=== PATIENT | male | born 1935 | race Caucasian/White ===

== ENCOUNTER 2018-02-08 08:15 | Emergency (ER) | payer MEDICARE, BC ==
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
[2018-02-08] MEDS: Diphtheria,Pertussis(Acell),Tetanus Vaccine 0.5 ML SDV IM ONE (08:55)
[2018-02-08] MEDS: Bacitracin/Neomycin/Polymyxin B Oint 0.9 GM U/D Packet TOP ONE (09:21)
== END 2018-02-08 10:00 | disposition home or self-care (01) ==
LOC: LL.ED 08:15
DX: S62.631A Displaced fracture of distal phalanx of left index finger, initial encounter for closed fracture (principal); S61.311A Laceration without foreign body of left index finger with damage to nail, initial encounter; I10 Essential (primary) hypertension; I25.810 Atherosclerosis of coronary artery bypass graft(s) without angina pectoris; M19.90 Unspecified osteoarthritis, unspecified site; Z87.891 Personal history of nicotine dependence; Z79.82 Long term (current) use of aspirin; Z79.899 Other long term (current) drug therapy; Z95.1 Presence of aortocoronary bypass graft; W23.1XXA Caught, crushed, jammed, or pinched between stationary objects, initial encounter; Y92.79 Other farm location as the place of occurrence of the external cause
CPT/HCPCS: 11730; 12001; 73140-FA; 90471; 90715; 99283; 99284

== ENCOUNTER 2021-08-23 11:15 | Inpatient (IN) | payer MEDICARE, BC, OTHER ==
[2021-08-23] MEDS ORDERED: Ondansetron 4 MG Tab.DIS PO ONE (11:17)
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
[2021-08-23] MEDS ORDERED: Lidocaine 2% HCl 11 ML Jelly Filled Syringe ONE (11:54)
[2021-08-23] MEDS ORDERED: Lidocaine 2% HCl 11 ML Jelly Filled Syringe TOP ONE ×2 (11:54→13:30)
[2021-08-23 11:57] LABS: CHLORIDE,CL 99 mmol/L (98-107); SODIUM,NA 135 mmol/L (136-145)
[2021-08-23 11:59] LABS: ANION GAP 16.9 meq/L (7-15)
[2021-08-23] MEDS ORDERED: cefTRIAXone 2 GM Vial IVPUSH SCH (12:30)
[2021-08-23] MEDS ORDERED: Morphine 2 MG/ML SYRINGE IVPUSH ONE (13:08)
[2021-08-23] MEDS: Sodium Chloride 0.9% 10 ML Syringe FLUSH PRN (13:30)
[2021-08-23] MEDS: Sodium Chloride 0.9% 1,000 ML IV SCH ×3 (14:02→22:27)
[2021-08-23] MEDS ORDERED: Acetaminophen 325 MG Tab PO PRN (14:30)
[2021-08-23] MEDS ORDERED: Belladonna Alkaloids/Opium 16.2-60 MG Supp RECTAL PRN (14:30)
[2021-08-23] MEDS ORDERED: Morphine 2 MG/ML SYRINGE IVPUSH PRN (14:30)
[2021-08-23] MEDS ORDERED: Ondansetron 4 MG Tab.DIS PO PRN (14:30)
[2021-08-23] MEDS ORDERED: Ondansetron 4 MG/2 ML SDV IVPUSH PRN (14:30)
[2021-08-23] MEDS ORDERED: Magnesium Citrate Solution 296 ML Bottle PO ONE (14:37)
[2021-08-23] MEDS: Tamsulosin 0.4 MG Cap.ER PO SCH (17:43)
[2021-08-23] MEDS: Gabapentin 300 MG Cap PO SCH ×2 (17:43)
[2021-08-23] MEDS: Sulfamethoxazole/Trimethoprim 800-160 MG Tab PO SCH (17:45)
[2021-08-23] MEDS: Losartan 50 MG Tab PO SCH (19:28)
[2021-08-23] MEDS: Acetaminophen/HYDROcodone 325-5 MG Tab PO PRN (23:04)
[2021-08-24] MEDS: Sodium Chloride 0.9% 1,000 ML IV SCH (04:53)
[2021-08-24 05:13] LABS: ANION GAP 7.2 meq/L (7-15)
[2021-08-24] MEDS: Aspirin 81 MG Tab.Chew PO SCH (08:14)
[2021-08-24] MEDS: Metoprolol Tartrate 25 MG Tab PO SCH (08:14)
[2021-08-24] MEDS: Tamsulosin 0.4 MG Cap.ER PO SCH (08:14)
[2021-08-24] MEDS: Gabapentin 300 MG Cap PO SCH ×2 (08:14→18:08)
[2021-08-24] MEDS: Sulfamethoxazole/Trimethoprim 800-160 MG Tab PO SCH ×2 (08:15→18:08)
[2021-08-24] MEDS: Sodium Chloride 0.9% 10 ML Syringe FLUSH PRN (08:18)
[2021-08-24] MEDS ORDERED: cefTRIAXone 2 GM Vial IVPUSH SCH (08:53)
--- NOTE | 2021-08-24 09:07 | PCM.PN ---
- General Info Date of Service: 08/24/21 Admission Dx/Problem (Free Text): Admission Diagnosis/Problem Admission Diagnosis/Problem 1. urinary retention 2. UTI with fever 3. FRANCISCO Subjective Update: Patient did have a fever last night. 100.8 T max. Treated with tylenol and none since. Has indwelling paz catheter with good drainage but still bloody, less clots. hemoglobin dropped one point, Urine cutlure shows growth. Had Rocephin and started Bactrim DS, awaiting culture. constipation since his hernia surgery treated with magnesium citrate. passing gas today, no bowel movement yet. using his incentive spirometer. did have low oxygen at sleep last night. Denies sleep apnea, does not wear a c pap, states he does snore. Oxygen better while awake. Desires to shower and walk today. Feeling better Functional Status: Reports: Pain Controlled, Tolerating Diet, Ambulating, Incentive Spirometry - Review of Systems General: Reports: Fever HEENT: Reports: No Symptoms Pulmonary: Reports: No Symptoms Cardiovascular: Reports: No Symptoms Gastrointestinal: Reports: Constipation. Denies: Nausea, Vomiting Genitourinary: Reports: Hematuria (wih catheter in place, no new symptoms) Skin: Reports: No Symptoms Neurological: Reports: No Symptoms Psychiatric: Reports: No Symptoms - Patient Data Vitals - Most Recent: Last Vital Signs Temp 35.9 C L 08/24/21 08:00 Pulse 110 H 08/24/21 08:14 Resp 16 08/24/21 08:00 BP 129/98 H 08/24/21 08:14 Pulse Ox 92 L 08/24/21 08:00 on 4 lpm nc at sleep turned down this am Weight - Most Recent: 73.936 kg I&O - Last 24 Hours: Intake & Output 08/23/21 08/24/21 08/24/21 22:59 06:59 14:59 Intake Total 1420 1734 600 Output Total 2050 825 Balance -630 909 600 Lab Results Last 24 Hours: Laboratory Results - last 24 hr 08/23/21 08/23/21 08/23/21 Range/Units 11:31 11:31 11:31 WBC 12.3 H (4.0-10.2) K/uL RBC 3.85 L (4.33-5.41) M/uL Hgb 12.0 L (13.1-16.8) g/dL Hct 36.8 L (39.0-49.0) % MCV 95.6 (84.0-98.0) fL MCH 31.2 (28.2-33.3) pg MCHC 32.6 (31.7-36.0) g/dL RDW 13.5 (11.2-14.1) % Plt Count 164 D (150-350) K/uL Neut % (Auto) 80.6 H (45.0-80.0) % Lymph % (Auto) 6.9 L (10.0-50.0) % [place] % (Auto) 12.4 (2.0-14.0) % Eos % (Auto) 0.0 (0.0-5.0) % Baso % (Auto) 0.1 (0.0-2.0) % Neut # (Auto) 9.89 H (1.40-7.00) K/uL Lymph # (Auto) 0.85 (0.50-3.50) K/uL [place] # (Auto) 1.52 H (0.00-1.00) K/uL Eos # (Auto) 0.00 (0.00-0.50) K/uL Baso # (Auto) 0.01 (0.00-0.20) K/uL Sodium 135 L (136-145) mmol/L Potassium 4.3 (3.5-5.1) mmol/L Chloride 99 (98-107) mmol/L Carbon Dioxide 23.4 (21.0-32.0) mmol/L Anion Gap 16.9 H (7-15) meq/L BUN 25 H (7-18) mg/dL Creatinine 1.93 H (0.51-1.17) mg/dL Est Cr Clr Drug Dosing TNP Estimated GFR (MDRD) 33 mL/min Glucose 121 H (70-99) mg/dL Lactic Acid 1.2 (0.4-2.0) mmol/L Calcium 8.4 L (8.5-10.1) mg/dL Total Bilirubin 0.9 (0.2-1.0) mg/dL AST 21 (15-37) U/L ALT 22 (12-78) U/L Alkaline Phosphatase 72 (46-116) IU/L C-Reactive Protein 3.9 H (<=0.9) mg/dL Total Protein 6.8 (6.4-8.2) g/dL Albumin 3.4 (3.4-5.0) g/dL Specimen Type Urine Color Urine Appearance Urine pH (5.0-9.0) Ur Specific [place] (1.005-1.030) Urine Protein (NEGATIVE) mg/dL Urine Glucose (UA) (NEGATIVE) mg/dL Urine Ketones (NEGATIVE) mg/dL Urine Occult Blood (NEGATIVE) Urine Nitrite (NEGATIVE) Urine Bilirubin (NEGATIVE) Urine Urobilinogen (0.2-1.0) E.U./dL Ur Leukocyte Esterase (NEGATIVE) Urine RBC /HPF Urine WBC /HPF Urine Bacteria (NONE TO FEW) /HPF 08/23/21 08/24/21 08/24/21 Range/Units 15:55 04:52 04:52 WBC 9.8 (4.0-10.2) K/uL RBC 3.51 L (4.33-5.41) M/uL Hgb 11.0 L (13.1-16.8) g/dL Hct 34.2 L (39.0-49.0) % MCV 97.4 (84.0-98.0) fL MCH 31.3 (28.2-33.3) pg MCHC 32.2 (31.7-36.0) g/dL RDW 13.6 (11.2-14.1) % Plt Count 124 L (150-350) K/uL Neut % (Auto) 81.7 H (45.0-80.0) % Lymph % (Auto) 9.4 L (10.0-50.0) % [place] % (Auto) 8.1 (2.0-14.0) % Eos % (Auto) 0.7 (0.0-5.0) % Baso % (Auto) 0.1 (0.0-2.0) % Neut # (Auto) 7.97 H (1.40-7.00) K/uL Lymph # (Auto) 0.92 (0.50-3.50) K/uL [place] # (Auto) 0.79 (0.00-1.00) K/uL Eos # (Auto) 0.07 (0.00-0.50) K/uL Baso # (Auto) 0.01 (0.00-0.20) K/uL Sodium 140 (136-145) mmol/L Potassium 4.6 (3.5-5.1) mmol/L Chloride 105 (98-107) mmol/L Carbon Dioxide 27.8 (21.0-32.0) mmol/L Anion Gap 7.2 (7-15) meq/L BUN 23 H (7-18) mg/dL Creatinine 1.43 H (0.51-1.17) mg/dL Est Cr Clr Drug Dosing 35.32 Estimated GFR (MDRD) 47 mL/min Glucose 109 H (70-99) mg/dL Lactic Acid (0.4-2.0) mmol/L Calcium 8.1 L (8.5-10.1) mg/dL Total Bilirubin (0.2-1.0) mg/dL AST (15-37) U/L ALT (12-78) U/L Alkaline Phosphatase (46-116) IU/L C-Reactive Protein (<=0.9) mg/dL Total Protein (6.4-8.2) g/dL Albumin (3.4-5.0) g/dL Specimen Type Urincath Urine Color Red Urine Appearance Turbid Urine pH 8.5 (5.0-9.0) Ur Specific [place] <= 1.005 (1.005-1.030) Urine Protein >=300 H (NEGATIVE) mg/dL Urine Glucose (UA) 100 H (NEGATIVE) mg/dL Urine Ketones 15 H (NEGATIVE) mg/dL Urine Occult Blood Large H (NEGATIVE) Urine Nitrite Negative (NEGATIVE) Urine Bilirubin Large H (NEGATIVE) Urine Urobilinogen 4.0 H (0.2-1.0) E.U./dL Ur Leukocyte Esterase Large H (NEGATIVE) Urine RBC >100 H /HPF Urine WBC >100 H /HPF Urine Bacteria Occasional (NONE TO FEW) /HPF Mark Results Last 24 Hours: Microbiology 08/23/21 15:55 Urine Culture - Preliminary Urine, Paz Cath ([place]) Gram Negative Rods Med Orders - Current: Current Medications Acetaminophen (Acetaminophen 325 Mg Tab) 650 mg PO Q4H PRN PRN Reason: Pain (Mild 1-3)/fever Last Admin: 08/24/21 08:15 Dose: 650 mg Documented by: Hydrocodone Bitart/Acetaminophen (Acetaminophen/Hydrocodone 325-5 Mg Tab) 1 tab PO Q4H PRN PRN Reason: Pain (moderate 4-6) Last Admin: 08/23/21 23:04 Dose: 1 tab Documented by: Aspirin (Aspirin 81 Mg Tab.Chew) 81 mg PO DAILY [facility] Last Admin: 08/24/21 08:14 Dose: 81 mg Documented by: Belladonna Alkaloids/Opium (Belladonna Alkaloids/Opium 16.2-60 Mg Supp) 1 supp RECTAL Q4H PRN PRN Reason: Spasms Ceftriaxone Sodium (Ceftriaxone 1 Gm Vial) 1 gm IVPUSH Q24H [facility] Ciprofloxacin (Ciprofloxacin 500 Mg Tab) 500 mg PO BID [facility] Gabapentin (Gabapentin 300 Mg Cap) 300 mg PO BID [facility] Last Admin: 08/24/21 08:14 Dose: 300 mg Documented by: Sodium Chloride (Normal Saline) 1,000 mls @ 999 mls/hr IV ASDIRECTED [facility] Last Admin: 08/23/21 22:27 Dose: 150 mls/hr Documented by: Sodium Chloride (Normal Saline) 1,000 mls @ 150 mls/hr IV ASDIRECTED [facility] Stop: 08/24/21 21:09 Last Infusion: 08/23/21 22:15 Dose: Infused Documented by: Lactobacillus Rhamnosus (Lactobacillus Rhamnosus Gg (Probiotic) Cap) 1 cap PO BID [facility] Losartan Potassium (Losartan 50 Mg Tab) 100 mg PO BEDTIME [facility] Last Admin: 08/23/21 19:28 Dose: 100 mg Documented by: Metoprolol Tartrate (Metoprolol Tartrate 25 Mg Tab) 25 mg PO DAILY [facility] Last Admin: 08/24/21 08:14 Dose: 25 mg Documented by: Morphine Sulfate (Morphine 2 Mg/Ml Syringe) 2 mg IVPUSH Q2H PRN PRN Reason: Pain (severe 7-10) Non-Formulary Medication (Non-Formulary Medication [Nf Drug]) 1 each PO DAILY [facility] Ondansetron HCl (Ondansetron 4 Mg Tab.Dis) 4 mg PO Q4H PRN PRN Reason: Nausea/Vomiting Ondansetron HCl (Ondansetron 4 Mg/2 Ml Sdv) 4 mg IVPUSH Q4H PRN PRN Reason: Nausea/Vomiting Sodium Chloride (Sodium Chloride 0.9% 10 Ml Syringe) 10 ml FLUSH ASDIRECTED PRN PRN Reason: Keep Vein Open Last Admin: 08/24/21 08:18 Dose: 10 ml Documented by: Tamsulosin HCl (Tamsulosin 0.4 Mg Cap.Er) 0.4 mg PO DAILY [facility] Last Admin: 08/24/21 08:14 Dose: 0.4 mg Documented by: Trimethoprim/Sulfamethoxazole (Sulfamethoxazole/Trimethoprim 800-160 Mg Tab) 1 tab PO BID [facility] Last Admin: 08/24/21 08:15 Dose: 1 tab Documented by: Discontinued Medications Ceftriaxone Sodium (Ceftriaxone 2 Gm Vial) 2 gm IVPUSH Q24H [facility] Last Admin: 08/23/21 13:29 Dose: 2 gm Documented by: Ceftriaxone Sodium (Ceftriaxone 2 Gm Vial) 1 gm IVPUSH Q24H [facility] Lidocaine HCl (Lidocaine 2% Hcl 11 Ml Jelly Filled Syringe) Confirm Administered Dose 11 ml .ROUTE .STK-MED ONE Stop: 08/23/21 11:55 Last Admin: 08/23/21 14:13 Dose: Not Given Documented by: Lidocaine HCl (Lidocaine 2% Hcl 11 Ml Jelly Filled Syringe) 11 ml TOP ONETIME ONE Stop: 08/23/21 13:31 Last Admin: 08/23/21 13:30 Dose: 11 ml Documented by: Lidocaine HCl (Lidocaine 2% Hcl 11 Ml Jelly Filled Syringe) 11 ml TOP ONETIME ONE Stop: 08/23/21 11:55 Last Admin: 08/23/21 11:54 Dose: 11 ml Documented by: Magnesium Citrate (Magnesium Citrate Solution 296 Ml Bottle) 0 ml PO ONETIME ONE Stop: 08/23/21 14:38 Last Admin: 08/23/21 15:38 Dose: 296 ml Documented by: Morphine Sulfate (Morphine 2 Mg/Ml Syringe) 2 mg IVPUSH ONETIME ONE Stop: 08/23/21 13:09 Last Admin: 08/23/21 13:26 Dose: 2 mg Documented by: Ondansetron HCl (Ondansetron 4 Mg Tab.Dis) 4 mg PO ONETIME ONE Stop: 08/23/21 11:18 Last Admin: 08/23/21 11:26 Dose: 4 mg Documented by: - Exam Quality Assessment: Supplemental Oxygen (at night, query sleep apnea versus atelectasis) Urinary Catheter Total Time: 0Days 9Hours General: Alert, Oriented, No Acute Distress HEENT: Pupils Equal, Pupils Reactive Neck: Supple Lungs: Clear to Auscultation, Normal Respiratory Effort Cardiovascular: Regular Rate, Regular Rhythm GI/Abdominal Exam: Normal Bowel Sounds, Soft, Non-Tender, No Organomegaly, No Distention (Male) Exam: Other (paz catheter in place, less bloody mucousy discharge from urethra) Extremities: Normal Inspection, Normal Range of Motion, Non-Tender, No Pedal Edema Wound/Incisions: Other (dressing is unchange, dried blood, no fluctuance, echymosis improving. ) Neurological: No New Focal Deficit Psy/Mental Status: Alert - Patient Data Lab Results Last 24 hrs: Laboratory Results - last 24 hr 08/23/21 08/23/21 08/23/21 Range/Units 11:31 11:31 11:31 WBC 12.3 H (4.0-10.2) K/uL RBC 3.85 L (4.33-5.41) M/uL Hgb 12.0 L (13.1-16.8) g/dL Hct 36.8 L (39.0-49.0) % MCV 95.6 (84.0-98.0) fL MCH 31.2 (28.2-33.3) pg MCHC 32.6 (31.7-36.0) g/dL RDW 13.5 (11.2-14.1) % Plt Count 164 D (150-350) K/uL Neut % (Auto) 80.6 H (45.0-80.0) % Lymph % (Auto) 6.9 L (10.0-50.0) % [place] % (Auto) 12.4 (2.0-14.0) % Eos % (Auto) 0.0 (0.0-5.0) % Baso % (Auto) 0.1 (0.0-2.0) % Neut # (Auto) 9.89 H (1.40-7.00) K/uL Lymph # (Auto) 0.85 (0.50-3.50) K/uL [place] # (Auto) 1.52 H (0.00-1.00) K/uL Eos # (Auto) 0.00 (0.00-0.50) K/uL Baso # (Auto) 0.01 (0.00-0.20) K/uL Sodium 135 L (136-145) mmol/L Potassium 4.3 (3.5-5.1) mmol/L Chloride 99 (98-107) mmol/L Carbon Dioxide 23.4 (21.0-32.0) mmol/L Anion Gap 16.9 H (7-15) meq/L BUN 25 H (7-18) mg/dL Creatinine 1.93 H (0.51-1.17) mg/dL Est Cr Clr Drug Dosing TNP Estimated GFR (MDRD) 33 mL/min Glucose 121 H (70-99) mg/dL Lactic Acid 1.2 (0.4-2.0) mmol/L Calcium 8.4 L (8.5-10.1) mg/dL Total Bilirubin 0.9 (0.2-1.0) mg/dL AST 21 (15-37) U/L ALT 22 (12-78) U/L Alkaline Phosphatase 72 (46-116) IU/L C-Reactive Protein 3.9 H (<=0.9) mg/dL Total Protein 6.8 (6.4-8.2) g/dL Albumin 3.4 (3.4-5.0) g/dL Specimen Type Urine Color Urine Appearance Urine pH (5.0-9.0) Ur Specific [place] (1.005-1.030) Urine Protein (NEGATIVE) mg/dL Urine Glucose (UA) (NEGATIVE) mg/dL Urine Ketones (NEGATIVE) mg/dL Urine Occult Blood (NEGATIVE) Urine Nitrite (NEGATIVE) Urine Bilirubin (NEGATIVE) Urine Urobilinogen (0.2-1.0) E.U./dL Ur Leukocyte Esterase (NEGATIVE) Urine RBC /HPF Urine WBC /HPF Urine Bacteria (NONE TO FEW) /HPF 08/23/21 08/24/21 08/24/21 Range/Units 15:55 04:52 04:52 WBC 9.8 (4.0-10.2) K/uL RBC 3.51 L (4.33-5.41) M/uL Hgb 11.0 L (13.1-16.8) g/dL Hct 34.2 L (39.0-49.0) % MCV 97.4 (84.0-98.0) fL MCH 31.3 (28.2-33.3) pg MCHC 32.2 (31.7-36.0) g/dL RDW 13.6 (11.2-14.1) % Plt Count 124 L (150-350) K/uL Neut % (Auto) 81.7 H (45.0-80.0) % Lymph % (Auto) 9.4 L (10.0-50.0) % [place] % (Auto) 8.1 (2.0-14.0) % Eos % (Auto) 0.7 (0.0-5.0) % Baso % (Auto) 0.1 (0.0-2.0) % Neut # (Auto) 7.97 H (1.40-7.00) K/uL Lymph # (Auto) 0.92 (0.50-3.50) K/uL [place] # (Auto) 0.79 (0.00-1.00) K/uL Eos # (Auto) 0.07 (0.00-0.50) K/uL Baso # (Auto) 0.01 (0.00-0.20) K/uL Sodium 140 (136-145) mmol/L Potassium 4.6 (3.5-5.1) mmol/L Chloride 105 (98-107) mmol/L Carbon Dioxide 27.8 (21.0-32.0) mmol/L Anion Gap 7.2 (7-15) meq/L BUN 23 H (7-18) mg/dL Creatinine 1.43 H (0.51-1.17) mg/dL Est Cr Clr Drug Dosing 35.32 Estimated GFR (MDRD) 47 mL/min Glucose 109 H (70-99) mg/dL Lactic Acid (0.4-2.0) mmol/L Calcium 8.1 L (8.5-10.1) mg/dL Total Bilirubin (0.2-1.0) mg/dL AST (15-37) U/L ALT (12-78) U/L Alkaline Phosphatase (46-116) IU/L C-Reactive Protein (<=0.9) mg/dL Total Protein (6.4-8.2) g/dL Albumin (3.4-5.0) g/dL Specimen Type Urincath Urine Color Red Urine Appearance Turbid Urine pH 8.5 (5.0-9.0) Ur Specific [place] <= 1.005 (1.005-1.030) Urine Protein >=300 H (NEGATIVE) mg/dL Urine Glucose (UA) 100 H (NEGATIVE) mg/dL Urine Ketones 15 H (NEGATIVE) mg/dL Urine Occult Blood Large H (NEGATIVE) Urine Nitrite Negative (NEGATIVE) Urine Bilirubin Large H (NEGATIVE) Urine Urobilinogen 4.0 H (0.2-1.0) E.U./dL Ur Leukocyte Esterase Large H (NEGATIVE) Urine RBC >100 H /HPF Urine WBC >100 H /HPF Urine Bacteria Occasional (NONE TO FEW) /HPF Result Diagrams: 08/24/21 04:52 08/24/21 04:52 Mark Results Last 24 hrs: Microbiology 08/23/21 15:55 Urine Culture - Preliminary Urine, Paz Cath ([place]) Gram Negative Rods Sepsis Event Note - Evaluation Sepsis Screening Result: No Definite Risk - Focused Exam Vital Signs: Vital Signs Temp Pulse Pulse Resp BP BP BP 08/24/21 08:14 110 H 129/98 H 08/24/21 08:00 35.9 C L 110 H 16 124/98 H 08/24/21 06:14 08/24/21 04:45 08/24/21 04:40 36.8 C 81 18 134/57 L 08/23/21 23:29 37.9 C 84 18 131/58 L 08/23/21 22:29 38.3 C H Pulse Ox 08/24/21 08:14 08/24/21 08:00 92 L 08/24/21 06:14 92 L 08/24/21 04:45 92 L 08/24/21 04:40 82 L 08/23/21 23:29 92 L 08/23/21 22:29 - Problem List & Annotations (1) FRANCISCO (acute kidney injury) SNOMED Code(s): 82477258, 29795109 Code(s): N17.9 - ACUTE KIDNEY FAILURE, UNSPECIFIED Status: Acute Current Visit: Yes Onset Date: ~08/23/21 Annotation/Comment:: Improved, had IV fluids tolerating PO fluids. Normalized and catheter in place for drainage. (2) Prostatitis SNOMED Code(s): 5821990 Code(s): N41.9 - INFLAMMATORY DISEASE OF PROSTATE, UNSPECIFIED Status: Acute Priority: Medium Current Visit: Yes Onset Date: ~08/23/21 Annotation/Comment:: difficult paz catheter insertion due to previous insertion. Now in place, draining with hematuria but less clots. will continue catheter draiange, irrigate today to ensure draining well. Gram negative rods growing in urine culture, one more dose of Rocephin IV, on bactrim. Will add cipro for the prostatitis and probiotic. Await culture. Was febrile. Needs to be afebrile today. white count normalized (3) Retention of urine SNOMED Code(s): 826851622 Code(s): R33.9 - RETENTION OF URINE, UNSPECIFIED Status: Resolved Priority: Medium Current Visit: Yes Onset Date: ~08/23/21 Annotation/Comment:: See prostatitis annotation. Improved. will need carlo nuation of the paz catheter for 5-7 days and antibiotics - Problem List Review Problem List Initiated/Reviewed/Updated: Yes - My Orders Last 24 Hours: My Active Orders 08/23/21 11:17 Bladder Scan [RC] ASDIRECTED 08/23/21 11:18 Urinary Catheter Assessment [RC] 08,08/23/21 11:30 Insert Paz Catheter [Insert Urinary Catheter] [OM.PC] Q24H 08/23/21 12:16 Abdomen Pelvis wo Cont [CT] Stat 08/23/21 12:18 Sodium Chloride 0.9% [Saline Flush] 10 ml FLUSH ASDIRECTED PRN Peripheral IV Insertion Adult [OM.PC] Routine 08/23/21 12:30 Sodium Chloride 0.9% [Normal Saline] 1,000 ml IV ASDIRECTED 08/23/21 13:49 Admission Status [Patient Status] [ADT] Routine 08/23/21 14:30 Up With Assistance [RC] .PRN Vital Signs [RC] 08,15,23 Acetaminophen [TylenoL] 650 mg PO Q4H PRN Acetaminophen/HYDROcodone [[place] 325-5 MG] 1 tab PO Q4H PRN Belladonna/Opium [B & O Supprettes No. 16A] 1 supp RECTAL Q4H PRN Morphine 2 mg IVPUSH Q2H PRN Ondansetron [Zofran ODT] 4 mg PO Q4H PRN Ondansetron [Zofran] 4 mg IVPUSH Q4H PRN Sodium Chloride 0.9% [Normal Saline] 1,000 ml IV ASDIRECTED Resuscitation Status Routine 08/23/21 14:31 Oxygen Therapy [RC] .PRN VTE/DVT Education [RC] 08/23/21 14:33 Intake and Output [RC] 06,18 08/23/21 15:45 Gabapentin [Neurontin] 300 mg PO BID Tamsulosin [Flomax] 0.4 mg PO DAILY 08/23/21 15:55 CULTURE URINE [RM] Stat 08/23/21 Dinner Regular Diet [DIET] 08/23/21 18:00 Sulfamethoxazole/Trimethoprim [Septra DS] 1 tab PO BID 08/23/21 19:35 Renew/Continue Urinary Catheter [OM.PC] Routine 08/23/21 20:00 Losartan [Cozaar] 100 mg PO BEDTIME 08/24/21 08:00 Aspirin 81 mg PO DAILY Metoprolol Tartrate [Lopressor] 25 mg PO DAILY Non-Formulary Medication [NF Drug] 1 each PO DAILY 08/24/21 08:45 Ciprofloxacin [Ciprofloxacin HCl] 500 mg PO BID 08/24/21 09:00 Lactobacillus Rhamnosus GG [Culturelle] 1 cap PO BID 08/24/21 12:30 cefTRIAXone [Rocephin] 1 gm IVPUSH Q24H - Assessment Assessment:: Urinary retention and uti with prostatitis from paz catheter insertion and removal in 24 hours. improving with antibitoics, indwelling paz catheter. Post op inguinal hernia with constipation. Given magnesium citrate, shower today and remove dressing, local wound cares and ambulation. FRANCISCO improved with IV fluids and removal of bladder outlet obstruction fever due to UTI and prostatitis - Plan Plan:: Continue IV antibitoics x 1, continue oral bactrim and cipro with probiotics until culture returns with concern for resistance. encrouage Po intake, ambulation, incentive spirometry. Will continue to monitor O2 sats, concern for atelectasis post op. maximize incentive spirometry. Offer suppository for constipation. declines. prefers to walk and is passing gas. Will monitor. Needs to get bowels working to help the bladder. Will need to be afebrile for 24 hours prior to discharge and concern for hematuria and clotting of catheter at home.
[2021-08-24] MEDS: cefTRIAXone 1 GM Vial IVPUSH SCH (12:22)
[2021-08-24] MEDS: Lactobacillus Rhamnosus GG (Probiotic) Cap PO SCH ×2 (12:22→18:08)
[2021-08-24] MEDS: Ciprofloxacin 500 MG Tab PO SCH ×2 (12:22→18:08)
[2021-08-24] MEDS ORDERED: Iopamidol 755 Mg/ML 100 ML Bottle IVPUSH STA (17:17)
--- NOTE | 2021-08-24 19:01 | PCM.SN.2 ---
- Free Text/Narrative Note: Patient has been up and walking the halls today, noted to continue to be hypoxic since last night. left on 2 lpm NC. minimal cough. showered and did well. Hitting 1500 on the incentive spirometer every hour. Getting Rocephin, bactrim and cipro. Awaiting urine culture. No bowel movement but passing gas. willing to try miralax in the morning, does not want a suppository. CT PE study was done due to hypoxia and recent surgery. Has right upper lobe pneumonia which could be aspiration from procedure. covered with Rocephin and cipro for this already. Maximize spirometer. multiple segmental and subsegmental pulmonary emboli. Will start lovenox at 80 mg subcutaneous bid and continue through hospitalization, may need home oxygen. admission status changed to inpatient \ Ct report with multiple pulmonary emboli involving multiple segmental and subsegmental pulmonary arteries in the lungs. Most in the right lower lobe. No right heart strain. consolidation in the posterior right upper lobe suggest pneumonitis/pneumonia trace bilatera pleural effusions, consolidations in bilateral lower lobes likely atelectasis
[2021-08-24] MEDS: Losartan 50 MG Tab PO SCH (19:19)
[2021-08-24] MEDS: Enoxaparin 80 MG/0.8 ML Syringe SUBCUT SCH (19:59)
[2021-08-25] MEDS ORDERED: Polyethylene Glycol 3350 Powder 17 GM Packet PO ONE (07:00)
[2021-08-25] MEDS ORDERED: Albuterol 0.083% 2.5 MG/3 ML Neb Soln NEB PRN (08:05)
--- NOTE | 2021-08-25 08:22 | PCM.PN ---
- General Info Date of Service: 08/25/21 Admission Dx/Problem (Free Text): Admission Diagnosis/Problem Admission Diagnosis/Problem PE, Pulmonary embolism with hypoxia urinary retention with UTI pneumonia Subjective Update: Patient was admitted with urinary retention and hematuria after inguinal hernia surgery. he had a fever and so was kept overnight for monitoring of blood clots obstructing his paz and the fever. Had been started on Rocephin and bactrim due to difficult paz catheter placement and marked inflammed prostate on CT. Urine is growing gram negative rods. No further fevers but did develop hypoxia overnight that continued into yesterday. Patient was up and ambulating with good paz drainage with dark blood and no clots in it. Elected to get a CT PE protocol for the hypoxia due to recent surgery. CT revealed a right upper lobe pneumonia due to probable aspiration with surgery, multiple pulmonary emboli. Patient is now on oxygen and getting lovenox 80 mg subcutaneous bid, covered wtih rocephin IV, cipro 500 mg bid and bactrim ds bid. awaiting urine culture sensitivities to de-escalate antibiotics Functional Status: Reports: Pain Controlled, Tolerating Diet, Ambulating, Incentive Spirometry, Other (on 2 lmp o2 wtih activity and rest) - Review of Systems General: Reports: No Symptoms HEENT: Reports: No Symptoms Pulmonary: Reports: Shortness of Breath, Cough (minimal) Cardiovascular: Reports: No Symptoms. Denies: Chest Pain, Palpitations Gastrointestinal: Reports: No Symptoms, Other (did have a small bowel movement today) Genitourinary: Reports: Other (paz catheter in, draining well, some bladder spasms that are tolerable) Skin: Reports: Other (surgical wound witout erythema or dehiscence, bruising improving) Neurological: Reports: No Symptoms Psychiatric: Reports: No Symptoms - Patient Data Vitals - Most Recent: Last Vital Signs Temp 37.7 C 08/24/21 23:20 Pulse 69 08/24/21 23:20 Resp 18 08/24/21 23:20 BP 110/50 L 08/24/21 23:20 Pulse Ox 92 L 08/25/21 03:20 Weight - Most Recent: 73.936 kg I&O - Last 24 Hours: Intake & Output 08/24/21 08/25/21 08/25/21 22:59 06:59 14:59 Intake Total 240 420 Output Total 475 775 Balance -235 -355 Lab Results Last 24 Hours: Laboratory Results - last 24 hr 08/24/21 08/25/21 Range/Units 19:02 07:44 WBC 11.7 H (4.0-10.2) K/uL RBC 3.17 L (4.33-5.41) M/uL Hgb 10.0 L 9.9 L (13.1-16.8) g/dL Hct 31.3 L 30.9 L (39.0-49.0) % MCV 97.5 (84.0-98.0) fL MCH 31.2 (28.2-33.3) pg MCHC 32.0 (31.7-36.0) g/dL RDW 13.6 (11.2-14.1) % Plt Count 124 L (150-350) K/uL Neut % (Auto) 78.4 (45.0-80.0) % Lymph % (Auto) 8.5 L (10.0-50.0) % Fountain % (Auto) 8.9 (2.0-14.0) % Eos % (Auto) 4.0 (0.0-5.0) % Baso % (Auto) 0.2 (0.0-2.0) % Neut # (Auto) 9.21 H (1.40-7.00) K/uL Lymph # (Auto) 1.00 (0.50-3.50) K/uL Fountain # (Auto) 1.04 H (0.00-1.00) K/uL Eos # (Auto) 0.47 (0.00-0.50) K/uL Baso # (Auto) 0.02 (0.00-0.20) K/uL Mark Results Last 24 Hours: Microbiology 08/23/21 15:55 Urine Culture - Preliminary Urine, Paz Cath (Indwelling) Gram Negative Rods Med Orders - Current: Current Medications Acetaminophen (Acetaminophen 325 Mg Tab) 650 mg PO Q4H PRN PRN Reason: Pain (Mild 1-3)/fever Last Admin: 08/24/21 08:15 Dose: 650 mg Documented by: Hydrocodone Bitart/Acetaminophen (Acetaminophen/Hydrocodone 325-5 Mg Tab) 1 tab PO Q4H PRN PRN Reason: Pain (moderate 4-6) Last Admin: 08/23/21 23:04 Dose: 1 tab Documented by: Albuterol (Albuterol 0.083% 2.5 Mg/3 Ml Neb Soln) 2.5 mg NEB Q4HRRT PRN PRN Reason: Shortness of Breath Aspirin (Aspirin 81 Mg Tab.Chew) 81 mg PO DAILY [facility] Last Admin: 08/24/21 08:14 Dose: 81 mg Documented by: Belladonna Alkaloids/Opium (Belladonna Alkaloids/Opium 16.2-60 Mg Supp) 1 supp RECTAL Q4H PRN PRN Reason: Spasms Ceftriaxone Sodium (Ceftriaxone 1 Gm Vial) 1 gm IVPUSH Q24H [facility] Last Admin: 08/24/21 12:22 Dose: 1 gm Documented by: Ciprofloxacin (Ciprofloxacin 500 Mg Tab) 500 mg PO BID [facility] Last Admin: 08/24/21 18:08 Dose: 500 mg Documented by: Enoxaparin Sodium (Enoxaparin 80 Mg/0.8 Ml Syringe) 80 mg SUBCUT Q12HR [facility] Last Admin: 08/24/21 19:59 Dose: 80 mg Documented by: Gabapentin (Gabapentin 300 Mg Cap) 300 mg PO BID [facility] Last Admin: 08/24/21 18:08 Dose: 300 mg Documented by: Sodium Chloride (Normal Saline) 1,000 mls @ 999 mls/hr IV ASDIRECTED [facility] Last Admin: 08/23/21 22:27 Dose: 150 mls/hr Documented by: Influenza Virus Vaccine (Pharmacy To Dose - Influenza Vaccine) 1 each IM ASDIRECTED [facility] Lactobacillus Rhamnosus (Lactobacillus Rhamnosus Gg (Probiotic) Cap) 1 cap PO BID [facility] Last Admin: 08/24/21 18:08 Dose: 1 cap Documented by: Losartan Potassium (Losartan 50 Mg Tab) 100 mg PO BEDTIME [facility] Last Admin: 08/24/21 19:19 Dose: 100 mg Documented by: Metoprolol Tartrate (Metoprolol Tartrate 25 Mg Tab) 25 mg PO DAILY [facility] Last Admin: 08/24/21 08:14 Dose: 25 mg Documented by: Morphine Sulfate (Morphine 2 Mg/Ml Syringe) 2 mg IVPUSH Q2H PRN PRN Reason: Pain (severe 7-10) Non-Formulary Medication (Non-Formulary Medication [Nf Drug]) 1 each PO DAILY [facility] Ondansetron HCl (Ondansetron 4 Mg Tab.Dis) 4 mg PO Q4H PRN PRN Reason: Nausea/Vomiting Ondansetron HCl (Ondansetron 4 Mg/2 Ml Sdv) 4 mg IVPUSH Q4H PRN PRN Reason: Nausea/Vomiting Sodium Chloride (Sodium Chloride 0.9% 10 Ml Syringe) 10 ml FLUSH ASDIRECTED PRN PRN Reason: Keep Vein Open Last Admin: 08/24/21 08:18 Dose: 10 ml Documented by: Tamsulosin HCl (Tamsulosin 0.4 Mg Cap.Er) 0.4 mg PO DAILY [facility] Last Admin: 08/24/21 08:14 Dose: 0.4 mg Documented by: Trimethoprim/Sulfamethoxazole (Sulfamethoxazole/Trimethoprim 800-160 Mg Tab) 1 tab PO BID [facility] Last Admin: 08/24/21 18:08 Dose: 1 tab Documented by: Discontinued Medications Ceftriaxone Sodium (Ceftriaxone 2 Gm Vial) 2 gm IVPUSH Q24H [facility] Last Admin: 08/23/21 13:29 Dose: 2 gm Documented by: Ceftriaxone Sodium (Ceftriaxone 2 Gm Vial) 1 gm IVPUSH Q24H [facility] Last Admin: 08/24/21 15:10 Dose: Not Given Documented by: Sodium Chloride (Normal Saline) 1,000 mls @ 150 mls/hr IV ASDIRECTED [facility]GO Stop: 08/24/21 21:09 Last Infusion: 08/23/21 22:15 Dose: Infused Documented by: Iopamidol (Iopamidol 755 Mg/Ml 100 Ml Bottle) 100 ml IVPUSH ONETIME STA Stop: 08/24/21 17:18 Last Admin: 08/24/21 17:56 Dose: 100 ml Documented by: Lidocaine HCl (Lidocaine 2% Hcl 11 Ml Jelly Filled Syringe) Confirm Administered Dose 11 ml .ROUTE .STK-MED ONE Stop: 08/23/21 11:55 Last Admin: 08/23/21 14:13 Dose: Not Given Documented by: Lidocaine HCl (Lidocaine 2% Hcl 11 Ml Jelly Filled Syringe) 11 ml TOP ONETIME O NE Stop: 08/23/21 13:31 Last Admin: 08/23/21 13:30 Dose: 11 ml Documented by: Lidocaine HCl (Lidocaine 2% Hcl 11 Ml Jelly Filled Syringe) 11 ml TOP ONETIME ONE Stop: 08/23/21 11:55 Last Admin: 08/23/21 11:54 Dose: 11 ml Documented by: Magnesium Citrate (Magnesium Citrate Solution 296 Ml Bottle) 0 ml PO ONETIME ONE Stop: 08/23/21 14:38 Last Admin: 08/23/21 15:38 Dose: 296 ml Documented by: Morphine Sulfate (Morphine 2 Mg/Ml Syringe) 2 mg IVPUSH ONETIME ONE Stop: 08/23/21 13:09 Last Admin: 08/23/21 13:26 Dose: 2 mg Documented by: Ondansetron HCl (Ondansetron 4 Mg Tab.Dis) 4 mg PO ONETIME ONE Stop: 08/23/21 11:18 Last Admin: 08/23/21 11:26 Dose: 4 mg Documented by: Polyethylene Glycol (Polyethylene Glycol 3350 Powder 17 Gm Packet) 17 gm PO ONETIME ONE Stop: 08/25/21 07:01 - Exam Quality Assessment: Supplemental Oxygen, Urine Catheter Urinary Catheter Total Time: 1Days 9Hours General: Alert, Oriented HEENT: Pupils Equal Neck: Supple Lungs: Normal Respiratory Effort, Decreased Breath Sounds (minimal at bases) Cardiovascular: Regular Rate, Regular Rhythm, No Murmurs GI/Abdominal Exam: Normal Bowel Sounds, Soft, Non-Tender (Male) Exam: Other (left inguinal incision without erythema, dehiscence, bruising improving) Extremities: Normal Inspection, Normal Range of Motion, Non-Tender, No Pedal Edema Wound/Incisions: Healing Well Psy/Mental Status: Alert - Patient Data Lab Results Last 24 hrs: Laboratory Results - last 24 hr 08/24/21 08/25/21 Range/Units 19:02 07:44 WBC 11.7 H (4.0-10.2) K/uL RBC 3.17 L (4.33-5.41) M/uL Hgb 10.0 L 9.9 L (13.1-16.8) g/dL Hct 31.3 L 30.9 L (39.0-49.0) % MCV 97.5 (84.0-98.0) fL MCH 31.2 (28.2-33.3) pg MCHC 32.0 (31.7-36.0) g/dL RDW 13.6 (11.2-14.1) % Plt Count 124 L (150-350) K/uL Neut % (Auto) 78.4 (45.0-80.0) % Lymph % (Auto) 8.5 L (10.0-50.0) % Fountain % (Auto) 8.9 (2.0-14.0) % Eos % (Auto) 4.0 (0.0-5.0) % Baso % (Auto) 0.2 (0.0-2.0) % Neut # (Auto) 9.21 H (1.40-7.00) K/uL Lymph # (Auto) 1.00 (0.50-3.50) K/uL Fountain # (Auto) 1.04 H (0.00-1.00) K/uL Eos # (Auto) 0.47 (0.00-0.50) K/uL Baso # (Auto) 0.02 (0.00-0.20) K/uL Result Diagrams: 08/25/21 07:44 08/24/21 04:52 Mark Results Last 24 hrs: Microbiology 08/23/21 15:55 Urine Culture - Preliminary Urine, Paz Cath (Indwelling) Gram Negative Rods Sepsis Event Note - Evaluation Sepsis Screening Result: No Definite Risk - Focused Exam Vital Signs: Vital Signs Temp Pulse Resp BP Pulse Ox 08/25/21 03:20 92 L 08/25/21 02:15 92 L 08/25/21 01:07 96 08/24/21 23:45 96 08/24/21 23:20 37.7 C 69 18 110/50 L 92 L - Problem List & Annotations (1) FRANCISCO (acute kidney injury) SNOMED Code(s): 16323886, 03512776 Code(s): N17.9 - ACUTE KIDNEY FAILURE, UNSPECIFIED Status: Resolved Current Visit: Yes Onset Date: ~08/23/21 Annotation/Comment:: 08/25/2021 improved, will continue to monitor Improved, had IV fluids tolerating PO fluids. Normalized and catheter in place for drainage. (2) Prostatitis SNOMED Code(s): 1364180 Code(s): N41.9 - INFLAMMATORY DISEASE OF PROSTATE, UNSPECIFIED Status: Acute Priority: Medium Current Visit: Yes Onset Date: ~08/23/21 Annotation/Comment:: 08/25/[address] tolerating well with minimal spasm. B&O suppositories and detrol available as needed. dark blood mixed with urine, no clots, catheter flushes well. Will watch for bright red blood as now on lovenox. being treated with bactrim and cipro, awaiting urine culture. Also monitoring the hemoglobin, dropped from 11 to 9.9 in the last day difficult paz catheter insertion due to previous insertion. Now in place, draining with hematuria but less clots. will continue catheter draiange, irrigate today to ensure draining well. Gram negative rods growing in urine culture, one more dose of Rocephin IV, on bactrim. Will add cipro for the prost atitis and probiotic. Await culture. Was febrile. Needs to be afebrile today. white count normalized (3) Retention of urine SNOMED Code(s): 536222302 Code(s): R33.9 - RETENTION OF URINE, UNSPECIFIED Status: Resolved Priority: Medium Current Visit: Yes Onset Date: ~08/23/21 Annotation/Comment:: See prostatitis annotation. Improved. will need continuation of the paz catheter for 5-7 days and antibiotics (4) Pneumonia SNOMED Code(s): 197310300 Code(s): J18.9 - PNEUMONIA, UNSPECIFIED ORGANISM Status: Acute Priority: Medium Current Visit: Yes Qualifiers: Pneumonia type: aspiration pneumonia Laterality: right Lung location: upper lobe of lung Annotation/Comment:: documented on CT 08/24/2021. already being treated with Ro cephin, cipro and bactrim. hypoxic but has PE. using incentive spirometer but decreased from 1500 early yesterday to 1000. will add albuterol nebs prn q 4 hour. patient is ambulating well. occasional cough, no fevers (5) Pulmonary embolus SNOMED Code(s): 78701636 Code(s): I26.99 - OTHER PULMONARY EMBOLISM WITHOUT ACUTE COR PULMONALE Status: Acute Priority: High Current Visit: Yes Qualifiers: Pulmonary embolism type: multiple subsegmental (without acute cor pulmonale) Qualified Code(s): I26.94 - Multiple subsegmental pulmonary emboli without acute cor pulmonale Annotation/Comment:: documented on CT yesterday. Hypoxic, but doing well on 1-2 lpm nc oxygen. May need to go home on this. receiving lovenox 80 mg subcutaneous bid. needs to transition to Po meds for home. doing incentive spirometry - Problem List Review Problem List Initiated/Reviewed/Updated: Yes - My Orders Last 24 Hours: My Active Orders 08/24/21 08:00 Aspirin 81 mg PO DAILY Metoprolol Tartrate [Lopressor] 25 mg PO DAILY Non-Formulary Medication [NF Drug] 1 each PO DAILY 08/24/21 08:45 Ciprofloxacin [Ciprofloxacin HCl] 500 mg PO BID 08/24/21 09:00 Lactobacillus Rhamnosus GG [Culturelle] 1 cap PO BID 08/24/21 09:18 Bladder Irrigation [RC] BID 08/24/21 11:37 Pharmacy to Dose - InFluenza V [Pharmacy to Dose - InFluenza Vaccine] 1 each IM ASDIRECTED 08/24/21 11:38 Vaccine to be Administered/Admin Charge [RC] ASDIRECTED 08/24/21 12:30 cefTRIAXone [Rocephin] 1 gm IVPUSH Q24H 08/24/21 16:44 PE Chest [Ang Chest] [CT] Routine 08/24/21 16:53 Communication Order [RC] STAT 08/24/21 18:30 Enoxaparin [Lovenox] 80 mg SUBCUT Q12HR 08/24/21 18:47 Admission Status [Patient Status] [ADT] Routine 08/24/21 18:49 Incentive Spirometry [RT Incentive Spirometry] [RC] Q1HWA 08/24/21 22:56 Renew/Continue Urinary Catheter [OM.PC] Routine 08/25/21 07:44 COMPREHENSIVE METABOLIC PN,CMP [CHEM] AM INR,PT,PROTHROMBIN TIME [COAG] AM 08/25/21 08:05 RT Aerosol Therapy [RC] ASDIRECTED Albuterol [Proventil Neb Soln] 2.5 mg NEB Q4HRRT PRN 08/26/21 05:11 CBC WITH AUTO DIFF [HEME] AM COMPREHENSIVE METABOLIC PN,CMP [CHEM] AM INR,PT,PROTHROMBIN TIME [COAG] AM 08/27/21 05:11 CBC WITH AUTO DIFF [HEME] AM COMPREHENSIVE METABOLIC PN,CMP [CHEM] AM INR,PT,PROTHROMBIN TIME [COAG] AM - Assessment Assessment:: 08/25/2021 Doing well with paz catheter. Needs to stay fo 5-7 days. flushes well and is clear with flushing. treating uti and prostatitis and tolerating well. New PE and pneumonia noted. continue antibiotics, add blood thinner. needs home oxygen at this time. Changed status to inpatient Urinary retention and uti with prostatitis from paz catheter insertion and removal in 24 hours. improving with antibitoics, indwelling paz catheter. Post op inguinal hernia with constipation. Given magnesium citrate, shower today and remove dressing, local wound cares and ambulation. FRANCISCO improved with IV fluids and removal of bladder outlet obstruction fever due to UTI and prostatitis - Plan Plan:: 08/25/2021 1. urinary retention, catheter doing well, some dark blood in it, hemoglobin dropped from 11 -9.9 also had FRANCISCO. Will continue to monitor hemoglobin. ca theter flushes well, needs to be in place for 5-7 days at least due to significant prostate enlargement and inflammation, detrol and B & O suppositories for bladder spasms 2. UTI, treated with antibiotics, await culture to de escalate. 3. right upper lobe pneumonia. concern for aspiration from surgery. Covered with antibiotics for uti/prostatits, doing incentive spirometry, will add albuterol nebs. On 2 lpm nc and may need to go home on this. 4. pulmonary emboli. on lovenox 80 mg subcutaneous bid. will need transition to oral med for home. incentive spirometery and nebs. monitor creatinine and hemoglobin Continue IV antibitoics x 1, continue oral bactrim and cipro with probiotics unt il culture returns with concern for resistance. encrouage Po intake, ambulation, incentive spirometry. Will continue to monitor O2 sats, concern for atelectasis post op. maximize incentive spirometry. Offer suppository for constipation. declines. prefers to walk and is passing gas. Will monitor. Needs to get bowels working to help the bladder. Will need to be afebrile for 24 hours prior to discharge and concern for hematuria and clotting of catheter at home.
[2021-08-25 08:33] LABS: ANION GAP 6.7 meq/L (7-15)
[2021-08-25] MEDS ORDERED: Docusate Sodium 100 MG Cap PO PRN (08:44)
[2021-08-25] MEDS: Metoprolol Tartrate 25 MG Tab PO SCH (08:59)
[2021-08-25] MEDS: Ciprofloxacin 500 MG Tab PO SCH ×2 (08:59→17:43)
[2021-08-25] MEDS: Sulfamethoxazole/Trimethoprim 800-160 MG Tab PO SCH ×2 (09:00→17:43)
[2021-08-25] MEDS: Tamsulosin 0.4 MG Cap.ER PO SCH (09:00)
[2021-08-25] MEDS: Enoxaparin 80 MG/0.8 ML Syringe SUBCUT SCH ×2 (09:00→19:58)
[2021-08-25] MEDS: Aspirin 81 MG Tab.Chew PO SCH (09:00)
[2021-08-25] MEDS: Gabapentin 300 MG Cap PO SCH ×2 (09:00→17:43)
[2021-08-25] MEDS: Lactobacillus Rhamnosus GG (Probiotic) Cap PO SCH ×2 (09:04→17:43)
[2021-08-25] MEDS: Sodium Chloride 0.9% 10 ML Syringe FLUSH PRN (12:42)
[2021-08-25] MEDS: cefTRIAXone 1 GM Vial IVPUSH SCH (12:42)
[2021-08-25] MEDS: Losartan 50 MG Tab PO SCH (19:58)
[2021-08-26] MEDS: Acetaminophen/HYDROcodone 325-5 MG Tab PO PRN (01:40)
[2021-08-26] MEDS: Ciprofloxacin 500 MG Tab PO SCH (07:22)
[2021-08-26] MEDS: Aspirin 81 MG Tab.Chew PO SCH (07:22)
[2021-08-26] MEDS: Tamsulosin 0.4 MG Cap.ER PO SCH (07:22)
[2021-08-26] MEDS: Metoprolol Tartrate 25 MG Tab PO SCH (07:23)
[2021-08-26] MEDS: Lactobacillus Rhamnosus GG (Probiotic) Cap PO SCH (07:23)
[2021-08-26] MEDS: Sulfamethoxazole/Trimethoprim 800-160 MG Tab PO SCH (07:23)
[2021-08-26] MEDS: Gabapentin 300 MG Cap PO SCH (07:23)
[2021-08-26 08:23] LABS: ANION GAP 8.6 meq/L (7-15)
[2021-08-26] MEDS: Enoxaparin 80 MG/0.8 ML Syringe SUBCUT SCH (09:07)
[2021-08-26] MEDS: Sodium Chloride 0.9% 10 ML Syringe FLUSH PRN (13:12)
[2021-08-26] MEDS: cefTRIAXone 1 GM Vial IVPUSH SCH (13:12)
--- NOTE | 2021-08-26 14:22 | PCM.DCSUM1 ---
Discharge Summary - Hospital Course Brief History: Patient admitted for treatment of UTI/prostatitis/urinary retention. Found to have hypoxemia secondary to multiple PEs. Incidental finding of right upper lobe pneumonia noted on CT. Diagnosis: Stroke: No - Discharge Data Discharge Date: 08/26/21 Discharge Disposition: DC/Tfer to Acute Hospital 02 Condition: Good - Referral to Home Health Primary Care Physician: PCP Unknown - Discharge Diagnosis/Problem(s) (1) Pulmonary embolus SNOMED Code(s): 79820214 ICD Code: I26.99 - OTHER PULMONARY EMBOLISM WITHOUT ACUTE COR PULMONALE Status: Acute Priority: High Current Visit: Yes Problem Details: documented on CT. Hypoxic, but doing well on 1-2 lpm nc oxygen. OK on room air at rest. Lovenox initiated. Qualifiers: Pulmonary embolism type: multiple subsegmental (without acute cor pulmonale) Qualified Code(s): I26.94 - Multiple subsegmental pulmonary emboli without acute cor pulmonale (2) UTI (urinary tract infection) SNOMED Code(s): 81186644 ICD Code: N39.0 - URINARY TRACT INFECTION, SITE NOT SPECIFIED Status: Acute Priority: High Current Visit: Yes Problem Details: May be associated with recent surgery/Jackson placement along with patient's prostate enlargement with associated urinary rentention. Gram negative rods/awaiting ID. Patient initially received Rocephin and PO Septra. Cipro added for additional coverage. Continues to have large amount of hematuria. Qualifiers: Urinary tract infection type: catheter-associated UTI Encounter type: initial encounter (3) Prostatitis SNOMED Code(s): 6995032 ICD Code: N41.9 - INFLAMMATORY DISEASE OF PROSTATE, UNSPECIFIED Status: Acute Priority: High Current Visit: Yes Onset Date: ~08/23/21 Problem Details: Suspect exacerbated secondary to recent Jackson placements since surgery. Markedly enlarged on CT. Bladder distended, also some hydronephrosis on scan. Unable to advance regular sized Jackson when drainage attempted in ER. Nursing staff successful with smaller diameter. Continues to have grover blook in urine. (4) Pneumonia SNOMED Code(s): 179944567 ICD Code: J18.9 - PNEUMONIA, UNSPECIFIED ORGANISM Status: Acute Priority: Medium Current Visit: Yes Problem Details: documented on CT 08/24/2021. already being treated with Rocephin, cipro and bactrim. hypoxic but has PE. Incentive spirometer/nebs. Possibly secondary to aspiration given patient's recent surgery. Patient is ambulating well. occasional cough, no fevers Qualifiers: Pneumonia type: aspiration pneumonia Laterality: right Lung location: upper lobe of lung (5) FRANCISCO (acute kidney injury) SNOMED Code(s): 92715875, 64557549 ICD Code: N17.9 - ACUTE KIDNEY FAILURE, UNSPECIFIED Status: Resolved Priority: Medium Current Visit: Yes Onset Date: ~08/23/21 Problem Details: 08/25/2021 improved, will continue to monitor Improved creatinine since Jackson placement and IV fluids. (6) Retention of urine SNOMED Code(s): 190709641 ICD Code: R33.9 - RETENTION OF URINE, UNSPECIFIED Status: Resolved Priority: Medium Current Visit: Yes Onset Date: ~08/23/21 Problem Details: as above (7) Coronary artery disease SNOMED Code(s): 12543828 ICD Code: I25.10 - ATHSCL HEART DISEASE OF [place] CORONARY ARTERY W/O ANG PCTRS Status: Chronic Priority: Low Current Visit: No Problem Details: No chest pain or recent anginal complaints. Qualifiers: Coronary Disease-Associated Artery/Lesion type: bypass graft [place] vs. t ransplanted heart: [place] heart Associated angina: without angina Qualified Code(s): I25.810 - Atherosclerosis of coronary artery bypass graft(s) without angina pectoris (8) Hyperlipidemia SNOMED Code(s): 55356794 ICD Code: E78.5 - HYPERLIPIDEMIA, UNSPECIFIED Status: Chronic Priority: Medium Current Visit: No Problem Details: Currently under therapy. Continue home meds Qualifiers: Hyperlipidemia type: unspecified Qualified Code(s): E78.5 - Hyperlipidemia, unspecified (9) Hypertension SNOMED Code(s): 18812372 ICD Code: I10 - ESSENTIAL (PRIMARY) HYPERTENSION Status: Chronic Priori ty: Medium Current Visit: No Problem Details: Blood pressures were under good control. Continue home meds Qualifiers: Hypertension type: essential hypertension Qualified Code(s): I10 - Essential (primary) hypertension (10) Osteoarthritis SNOMED Code(s): 291927755 ICD Code: M19.90 - UNSPECIFIED OSTEOARTHRITIS, UNSPECIFIED SITE Status: Chronic Priority: Low Current Visit: No Problem Details: Stable by patient history Qualifiers: Osteoarthritis location: multiple joints Osteoarthritis type: primary - Patient Summary/Data Hospital Course: Patient received multiple antibiotics as noted above. Hypoxemia was noted and this led to CT of chest which identified multiple PEs along with right upper lobe pneumonia. Patient started on Lovenox. Supplemental O2 via NC for hypoxemia. Continued to have large amount of hematuria. Worsened hematuria today, and has blood leaking around insertion point of Jackson. Unable to provide continuous bladder irrigation due to inability to get larger size of Jackson placed. White count improved but Hgb gradually dropping. 9.6 today. Suspect bleeding is due to multiple factors, including mechanical trauma to enlarged prostate from [place], the UTI, and anticoagulation treatment of PEs. Given continued lowering of HGB and no improvement of hematuria, call placed to [place] and patient reviewed with /Hospitalist. It was determined that patient would benefit from Urology evaluation. He was accepted by for transfer to [place]. - Discharge Plan *PRESCRIPTION DRUG MONITORING PROGRAM REVIEWED*: Not Applicable *COPY OF PRESCRIPTION DRUG MONITORING REPORT IN PATIENT RAFY: Not Applicable Home Medications: Home Meds Aspirin 81 mg PO DAILY 02/08/18 [History] Gabapentin [Neurontin] 300 mg PO BID 02/08/18 [History] Losartan Potassium [Cozaar] 100 mg PO QPM 02/08/18 [History] Metoprolol Tartrate 25 mg PO DAILY 02/08/18 [History] Non-Formulary Medication [NF Drug] 1 each PO DAILY 02/08/18 [History] Tamsulosin [Flomax] 0.4 mg PO DAILY 02/08/18 [History] Clindamycin HCl 150 mg PO ASDIRECTED PRN 08/23/21 [History] Forms: ED Department Discharge Referrals: PCP,Unknown [Primary Care Provider] - - Discharge Summary/Plan Comment DC Time >30 min.: No Total # of Minutes for Discharge Time: 45 - General Info Date of Service: 08/26/21 Admission Dx/Problem (Free Text: Admission Diagnosis/Problem Admission Diagnosis/Problem PE, Pulmonary embolism with hypoxia urinary retention with UTI pneumonia Subjective Update: Patient is feeling better overall since arrival. No new complaints. Numeric/FACES Score: 2 - Review of Systems General: Denies: Weakness, Fatigue, Malaise, Chills, Night Sweats, Appetite HEENT: Reports: No Symptoms Pulmonary: Reports: Shortness of Breath (mild/with activity), Cough (minimal). Denies: Pleuritic Chest Pain, Sputum, Hemoptysis, Wheezing Cardiovascular: Denies: Chest Pain, Palpitations, Orthopnea, Edema, Lightheadedness Gastrointestinal: Reports: Constipation (mild). Denies: Abdominal Pain, Decreased Appetite, Diarrhea, Difficulty Swallowing, Hematochezia, Nausea, V omiting Genitourinary: Reports: Hematuria, Retention. Denies: Flank Pain Musculoskeletal: Reports: Other (no acute changes from baseline) Skin: Reports: No Symptoms Neurological: Reports: No Symptoms Psychiatric: Reports: No Symptoms - Patient Data Vitals - Most Recent: Last Vital Signs Temp 36.3 C 08/26/21 08:00 Pulse 65 08/26/21 08:00 Resp 14 08/26/21 08:00 BP 124/53 L 08/26/21 08:00 Pulse Ox 92 L 08/26/21 01:48 Weight - Most Recent: 73.936 kg I&O - Last 24 hours: Intake & Output 08/25/21 08/26/21 08/26/21 22:59 06:59 14:59 Intake Total 300 596 Output Total 175 900 Balance -175 -600 596 Lab Results - Last 24 hrs: Laboratory Results - last 24 hr 08/26/21 08/26/21 08/26/21 Range/Units 07:18 07:18 07:18 WBC 8.2 (4.0-10.2) K/uL RBC 3.11 L (4.33-5.41) M/uL Hgb 9.6 L (13.1-16.8) g/dL Hct 30.3 L (39.0-49.0) % MCV 97.4 (84.0-98.0) fL MCH 30.9 (28.2-33.3) pg MCHC 31.7 (31.7-36.0) g/dL RDW 13.2 (11.2-14.1) % Plt Count 142 L (150-350) K/uL Neut % (Auto) 68.9 (45.0-80.0) % Lymph % (Auto) 12.3 (10.0-50.0) % [place] % (Auto) 11.1 (2.0-14.0) % Eos % (Auto) 7.5 H (0.0-5.0) % Baso % (Auto) 0.2 (0.0-2.0) % Neut # (Auto) 5.63 (1.40-7.00) K/uL Lymph # (Auto) 1.01 (0.50-3.50) K/uL [place] # (Auto) 0.91 (0.00-1.00) K/uL Eos # (Auto) 0.61 H (0.00-0.50) K/uL Baso # (Auto) 0.02 (0.00-0.20) K/uL PT 10.6 (9.5-12.0) SEC INR 1.1 Sodium 137 (136-145) mmol/L Potassium 4.6 (3.5-5.1) mmol/L Chloride 104 (98-107) mmol/L Carbon Dioxide 24.4 (21.0-32.0) mmol/L Anion Gap 8.6 (7-15) meq/L BUN 25 H (7-18) mg/dL Creatinine 1.56 H (0.51-1.17) mg/dL Est Cr Clr Drug Dosing 32.38 mL/min Estimated GFR (MDRD) 43 mL/min Glucose 104 H (70-99) mg/dL Calcium 8.0 L (8.5-10.1) mg/dL Total Bilirubin 0.5 (0.2-1.0) mg/dL AST 22 (15-37) U/L ALT 24 (12-78) U/L Alkaline Phosphatase 67 (46-116) IU/L Total Protein 5.8 L (6.4-8.2) g/dL Albumin 2.5 L (3.4-5.0) g/dL SARS-CoV-2 Ag (Rapid) (NEGATIVE) 08/26/21 Range/Units 13:45 WBC (4.0-10.2) K/uL RBC (4.33-5.41) M/uL Hgb (13.1-16.8) g/dL Hct (39.0-49.0) % MCV (84.0-98.0) fL MCH (28.2-33.3) pg MCHC (31.7-36.0) g/dL RDW (11.2-14.1) % Plt Count (150-350) K/uL Neut % (Auto) (45.0-80.0) % Lymph % (Auto) (10.0-50.0) % [place] % (Auto) (2.0-14.0) % Eos % (Auto) (0.0-5.0) % Baso % (Auto) (0.0-2.0) % Neut # (Auto) (1.40-7.00) K/uL Lymph # (Auto) (0.50-3.50) K/uL [place] # (Auto) (0.00-1.00) K/uL Eos # (Auto) (0.00-0.50) K/uL Baso # (Auto) (0.00-0.20) K/uL PT (9.5-12.0) SEC INR Sodium (136-145) mmol/L Potassium (3.5-5.1) mmol/L Chloride (98-107) mmol/L Carbon Dioxide (21.0-32.0) mmol/L Anion Gap (7-15) meq/L BUN (7-18) mg/dL Creatinine (0.51-1.17) mg/dL Est Cr Clr Drug Dosing mL/min Estimated GFR (MDRD) mL/min Glucose (70-99) mg/dL Calcium (8.5-10.1) mg/dL Total Bilirubin (0.2-1.0) mg/dL AST (15-37) U/L ALT (12-78) U/L Alkaline Phosphatase (46-116) IU/L Total Protein (6.4-8.2) g/dL Albumin (3.4-5.0) g/dL SARS-CoV-2 Ag (Rapid) Negative (NEGATIVE) Med Orders - Current: Current Medications Acetaminophen (Acetaminophen 325 Mg Tab) 650 mg PO Q4H PRN PRN Reason: Pain (Mild 1-3)/fever Last Admin: 08/24/21 08:15 Dose: 650 mg Documented by: Hydrocodone Bitart/Acetaminophen (Acetaminophen/Hydrocodone 325-5 Mg Tab) 1 tab PO Q4H PRN PRN Reason: Pain (moderate 4-6) Last Admin: 08/26/21 01:40 Dose: 1 tab Documented by: Albuterol (Albuterol 0.083% 2.5 Mg/3 Ml Neb Soln) 2.5 mg NEB Q4HRRT PRN PRN Reason: Shortness of Breath Aspirin (Aspirin 81 Mg Tab.Chew) 81 mg PO DAILY [facility] Last Admin: 08/26/21 07:22 Dose: 81 mg Documented by: Belladonna Alkaloids/Opium (Belladonna Alkaloids/Opium 16.2-60 Mg Supp) 1 supp RECTAL Q4H PRN PRN Reason: Spasms Ceftriaxone Sodium (Ceftriaxone 1 Gm Vial) 1 gm IVPUSH Q24H [facility] Last Admin: 08/26/21 13:12 Dose: 1 gm Documented by: Ciprofloxacin (Ciprofloxacin 500 Mg Tab) 500 mg PO BID [facility] Last Admin: 08/26/21 07:22 Dose: 500 mg Documented by: Docusate Sodium (Docusate Sodium 100 Mg Cap) 100 mg PO DAILY PRN PRN Reason: Constipation Enoxaparin Sodium (Enoxaparin 80 Mg/0.8 Ml Syringe) 80 mg SUBCUT Q12HR [facility] Last Admin: 08/26/21 09:07 Dose: 80 mg Documented by: Gabapentin (Gabapentin 300 Mg Cap) 300 mg PO BID [facility] Last Admin: 08/26/21 07:23 Dose: 300 mg Documented by: Sodium Chloride (Normal Saline) 1,000 mls @ 999 mls/hr IV ASDIRECTED [facility] Last Admin: 08/23/21 22:27 Dose: 150 mls/hr Documented by: Influenza Virus Vaccine (Pharmacy To Dose - Influenza Vaccine) 1 each IM ASDIRECTED [facility] Lactobacillus Rhamnosus (Lactobacillus Rhamnosus Gg (Probiotic) Cap) 1 cap PO BID [facility] Last Admin: 08/26/21 07:23 Dose: 1 cap Documented by: Losartan Potassium (Losartan 50 Mg Tab) 100 mg PO BEDTIME [facility] Last Admin: 08/25/21 19:58 Dose: 100 mg Documented by: Metoprolol Tartrate (Metoprolol Tartrate 25 Mg Tab) 25 mg PO DAILY [facility] Last Admin: 08/26/21 07:23 Dose: 25 mg Documented by: Morphine Sulfate (Morphine 2 Mg/Ml Syringe) 2 mg IVPUSH Q2H PRN PRN Reason: Pain (severe 7-10) Non-Formulary Medication (Non-Formulary Medication [Nf Drug]) 1 each PO DAILY [facility] Ondansetron HCl (Ondansetron 4 Mg Tab.Dis) 4 mg PO Q4H PRN PRN Reason: Nausea/Vomiting Ondansetron HCl (Ondansetron 4 Mg/2 Ml Sdv) 4 mg IVPUSH Q4H PRN PRN Reason: Nausea/Vomiting Sodium Chloride (Sodium Chloride 0.9% 10 Ml Syringe) 10 ml FLUSH ASDIRECTED PRN PRN Reason: Keep Vein Open Last Admin: 08/26/21 13:12 Dose: 10 ml Documented by: Tamsulosin HCl (Tamsulosin 0.4 Mg Cap.Er) 0.4 mg PO DAILY [facility] Last Admin: 08/26/21 07:22 Dose: 0.4 mg Documented by: Tolterodine Tartrate (Tolterodine 1 Mg Tab) 1 mg PO BID PRN PRN Reason: Spasms Trimethoprim/Sulfamethoxazole (Sulfamethoxazole/Trimethoprim 800-160 Mg Tab) 1 tab PO BID [facility] Last Admin: 08/26/21 07:23 Dose: 1 tab Documented by: Discontinued Medications Ceftriaxone Sodium (Ceftriaxone 2 Gm Vial) 2 gm IVPUSH Q24H [facility] Last Admin: 08/23/21 13:29 Dose: 2 gm Documented by: Ceftriaxone Sodium (Ceftriaxone 2 Gm Vial) 1 gm IVPUSH Q24H [facility] Last Admin: 08/24/21 15:10 Dose: Not Given Documented by: Sodium Chloride (Normal Saline) 1,000 mls @ 150 mls/hr IV ASDIRECTED [facility] Stop: 08/24/21 21:09 Last Infusion: 08/23/21 22:15 Dose: Infused Documented by: Iopamidol (Iopamidol 755 Mg/Ml 100 Ml Bottle) 100 ml IVPUSH ONETIME STA Stop: 08/24/21 17:18 Last Admin: 08/24/21 17:56 Dose: 100 ml Documented by: Lidocaine HCl (Lidocaine 2% Hcl 11 Ml Jelly Filled Syringe) Confirm Administered Dose 11 ml .ROUTE .STK-MED ONE Stop: 08/23/21 11:55 Last Admin: 08/23/21 14:13 Dose: Not Given Documented by: Lidocaine HCl (Lidocaine 2% Hcl 11 Ml Jelly Filled Syringe) 11 ml TOP ONETIME ONE Stop: 08/23/21 13:31 Last Admin: 08/23/21 13:30 Dose: 11 ml Documented by: Lidocaine HCl (Lidocaine 2% Hcl 11 Ml Jelly Filled Syringe) 11 ml TOP ONETIME ONE Stop: 08/23/21 11:55 Last Admin: 08/23/21 11:54 Dose: 11 ml Documented by: Magnesium Citrate (Magnesium Citrate Solution 296 Ml Bottle) 0 ml PO ONETIME ONE Stop: 08/23/21 14:38 Last Admin: 08/23/21 15:38 Dose: 296 ml Documented by: Morphine Sulfate (Morphine 2 Mg/Ml Syringe) 2 mg IVPUSH ONETIME ONE Stop: 08/23/21 13:09 Last Admin: 08/23/21 13:26 Dose: 2 mg Documented by: Ondansetron HCl (Ondansetron 4 Mg Tab.Dis) 4 mg PO ONETIME ONE Stop: 08/23/21 11:18 Last Admin: 08/23/21 11:26 Dose: 4 mg Documented by: Polyethylene Glycol (Polyethylene Glycol 3350 Powder 17 Gm Packet) 17 gm PO ONETIME ONE Stop: 08/25/21 07:01 Last Admin: 08/25/21 09:00 Dose: 17 gm Documented by: - Exam Quality Assessment: Reports: Supplemental Oxygen, DVT Prophylaxis General: Reports: Alert, Oriented, Cooperative, No Acute Distress HEENT: Reports: Pupils Equal, Pupils Reactive, EOMI, Mucous Membr. Moist/[place]ck: Reports: Supple Lungs: Reports: Clear to Auscultation, Normal Respiratory Effort Cardiovascular: Reports: Regular Rate, Tachycardia GI/Abdominal Exam: Normal Bowel Sounds, Soft, Non-Tender, No Distention (Male) Exam: Deferred, Other (has Jackson in place) Rectal (Males) Exam: Deferred Back Exam: Reports: Normal Inspection Extremities: Normal Inspection, Normal Range of Motion, Non-Tender, Normal Capillary Refill Skin: Reports: Warm, Dry Neurological: Reports: No New Focal Deficit Psy/Mental Status: Reports: Alert, Normal Affect, Normal Mood
== END 2021-08-26 15:21 | DRG 205 ==
LOC: LL.ED 11:15 → LL.MS 13:49 → UNDOADMOB 14:28 → OBSVTOIN 08-24 18:47 → INTOOBSV 08-24 19:00 → UNDODISIN 08-26 15:21
PROVIDERS: ADMIT Physician Assistant; ATTEND Physician Assistant
DX: J95.89 Other postprocedural complications and disorders of respiratory system, not elsewhere classified (principal); I26.94 Multiple subsegmental thrombotic pulmonary emboli without acute cor pulmonale; J69.0 Pneumonitis due to inhalation of food and vomit; I25.10 Atherosclerotic heart disease of native coronary artery without angina pectoris; I11.0 Hypertensive heart disease with heart failure; T83.511A Infection and inflammatory reaction due to indwelling urethral catheter, initial encounter; N17.9 Acute kidney failure, unspecified; I25.810 Atherosclerosis of coronary artery bypass graft(s) without angina pectoris; N39.0 Urinary tract infection, site not specified; R33.9 Retention of urine, unspecified; N41.9 Inflammatory disease of prostate, unspecified; E78.5 Hyperlipidemia, unspecified; Z20.822 Contact with and (suspected) exposure to COVID-19; I10 Essential (primary) hypertension; M19.90 Unspecified osteoarthritis, unspecified site; H91.93 Unspecified hearing loss, bilateral; E78.00 Pure hypercholesterolemia, unspecified; M54.9 Dorsalgia, unspecified; G89.29 Other chronic pain; M54.2 Cervicalgia; G62.9 Polyneuropathy, unspecified; N40.1 Benign prostatic hyperplasia with lower urinary tract symptoms; R33.8 Other retention of urine; K43.2 Incisional hernia without obstruction or gangrene; B96.89 Other specified bacterial agents as the cause of diseases classified elsewhere; Z79.82 Long term (current) use of aspirin; Z79.899 Other long term (current) drug therapy; Z98.49 Cataract extraction status, unspecified eye; Z95.1 Presence of aortocoronary bypass graft
CPT/HCPCS: 36415; 51702; 71275; 74176; 80048; 80053; 81001; 83605; 85014; 85018; 85025; 85610; 86140; 87086; 87088; 87186; 87426; 96374; 96375; 96376; 99220; 99232; 99238; 99284-25; A9270-GY; G0378; J0696; J1650; J2270; J7030; Q9967